=== PATIENT | male | born 1980 | race Caucasian/White ===

== ENCOUNTER 2016-03-10 02:08 | Emergency (ER) | payer OTHER ==
[2016-03-10 02:26] VITALS: BP 140/81; PULSE 79; TEMP 98.1; BMI 54.8
[2016-03-10] MEDS ORDERED: IBUPROFEN 400 MG TABLET (FP) PO ONE ×2 (02:31→03:01)
[2016-03-10] MEDS ORDERED: OXYCODONE/APAP 5/325MG COMBO TABLET PO ONE (02:31)
--- NOTE | 2016-03-10 02:54 | PDOC ---
*Physical Exam - Vital Signs Last Vital Signs Temp Pulse Resp BP Pulse Ox 98.1 F 79 20 140/81 100 03/10/16 02:13 03/10/16 02:13 03/10/16 02:13 03/10/16 02:13 03/10/16 02:13 Medical Decision Making - Medical Decision Making 03/10/16 02:54 agree with care from TONGUE CARRIER Jarek *DC/Admit/Observation/Transfer Diagnosis at time of Disposition: Dislocation, finger closed - Discharge Dispostion Disposition: HOME Condition at time of disposition: Good - Prescriptions Prescriptions: Ibuprofen [Motrin -] 600 mg PO Q6H PRN #30 tablet PRN Reason: Mild Pain Oxycodone HCl/Acetaminophen [Percocet 5-325 mg Tablet] 1 tab PO Q6H PRN #30 tablet MDD 4 tabs PRN Reason: Severe Pain - Referrals Referrals: Perez Wiseman MD [Primary Care Provider] - Negro Mehat MD [Staff Physician] - - Patient Instructions Printed Discharge Instructions: DI for Finger Dislocation Additional Instructions: FOLLOW UP WITH YOUR ORTHOPEDIST DISCUSSED REGARDING HAND SPECIALIST. TAKE MEDICATIONS PRESCRIBED. DO NOT DRIVE, DRINK ALCOHOL, OR OPERATE HEAVY MACHINERY WHILE TAKING PERCOCET. APPLY COLD COMPRESS TO AFFECTED AREA EVERY 2-4 HOURS FOR 10-15 MINS ON AND OFF. RETURN IF ANY CONCERNS FOR FURTHER EVALUATION. OR CALL DR. MEHTA (ORTHOPEDIC) REGARDING TODAY VISIT. Print Language: LITHUANIAN
[2016-03-10] MEDS ORDERED: OXYCODONE/APAP 5/325MG COMBO TABLET ONE (03:01)
--- NOTE | 2016-03-10 03:41 | PDOC ---
History of Present Illness - General Chief Complaint: Injury Stated Complaint: [employer] FINGER INJURY Time Seen by Provider: 03/10/16 02:16 History Source: Patient Exam Limitations: No Limitations - History of Present Illness Initial Comments: 03/10/16 02:32 35yo Male patient presents to ED c/o hand injury s/p fall. Patient states he slipped on ice, and while trying to break his fall he injured his right ring finger. Denies any other complaints at this time. Occurred: reports: just prior to arrival Severity: reports: mild Pain Location: reports: upper extremity Method of Injury: Yes: fall Modifying Factors: improves with: None Loss of Consciousness: no loss of consciousness Associated Symptoms (Fall): denies symptoms Past History - Travel Traveled outside of the country in the last 30 days: No Close contact w/someone who was outside of country & ill: No - Past Medical History Allergies/Adverse Reactions: Allergies Allergy/AdvReac Type Severity Reaction Status Date / Time No Known Allergies Allergy Verified 03/10/16 02:15 Home Medications: Ambulatory Orders Ibuprofen [Motrin -] 600 mg PO Q6H PRN #30 tablet 03/10/16 Oxycodone HCl/Acetaminophen [Percocet 5-325 mg Tablet] 1 tab PO Q6H PRN #30 tablet MDD 4 tabs 03/10/16 Anemia: No Asthma: No Cancer: No Cardiac Disorders: No CVA: No COPD: No CHF: No Dementia: No Diabetes: No GI Disorders: No Disorders: No HTN: No Hypercholesterolemia: No Liver Disease: No Seizures: No Thyroid Disease: No Other medical history: denies - Surgical History Abdominal Surgery: No Appendectomy: No Cardiac Surgery: No Cholecystectomy: No Lung Surgery: No Neurologic Surgery: No Orthopedic Surgery: No - Immunization History Immunization Up to Date: Yes - Psycho/Social/Smoking Cessation Hx Anxiety: No Suicidal Ideation: No Smoking Status: Yes Smoking History: Never smoked Have you smoked in the past 12 months: No Number of Cigarettes Smoked Daily: 20 Cigars Per Day: 0 Information on smoking cessation initiated: No 'Breaking Loose' booklet given: 09/30/13 Hx Alcohol Use: No Drug/Substance Use Hx: No Substance Use Type: Alcohol Trauma Specific PMHX - Complaint Specific PMHX Arthritis: No Back Injury: No Neck Injury: No Hx Sacro Iliac Joint Dysfunction: No Review of Systems - Review of Systems Able to Perform ROS?: Yes Is the patient limited Kyrgyz proficient: No Constitutional: No: Chills, Fever, Malaise, Night Sweats HEENTM: No: Throat Pain, Throat Swelling, Difficulty Swallowing, Mouth Swelling Respiratory: No: Cough, Shortness of Breath Cardiac (ROS): No: Chest Pain ABD/GI: No: Diarrhea, Nausea, Vomiting : No: Burning, Dysuria, Flank Pain Musculoskeletal: Yes: Joint Pain, Joint Swelling. No: Back Pain, Neck Pain Integumentary: No: Bruising, Rash, Sweating Neurological: No: Headache, Numbness, Seizure, Tingling, Tremors, Weakness, Dizziness All Other Systems: Reviewed and Negative *Physical Exam - Vital Signs Last Vital Signs Temp Pulse Resp BP Pulse Ox 98.1 F 79 20 140/81 100 03/10/16 02:13 03/10/16 02:13 03/10/16 02:13 03/10/16 02:13 03/10/16 02:13 - Physical Exam General Appearance: Yes: Nourished, Appropriately Dressed, Moderate Distress HEENT: positive: EOMI, ROSSI, Normal ENT Inspection, Normal Voice, Symmetrical Neck: positive: Trachea midline, Supple Respiratory/Chest: positive: Lungs Clear, Normal Breath Sounds Cardiovascular: positive: Regular Rhythm, Regular Rate Gastrointestinal/Abdominal: positive: Normal Bowel Sounds, Soft Lymphatic: negative: Adenopathy Musculoskeletal: positive: Normal Inspection, Other (Right ring finger deformity noted with moderate swelling to metacarpal hernandez aspect.). negative : CVA Tenderness Extremity: positive: Normal Capillary Refill, Normal Inspection. negative: Normal Range of Motion (Limited ROM of right ring finger.) Integumentary: positive: Normal Color, Dry, Warm Neurologic: positive: traveling phlebotomist II-XII NML intact, Fully Oriented, Alert, Normal Mood/ Affect, Normal Response, Motor Strength 5/5 Procedures - Joint Reduction Right Joint Reduction Site: right: Finger (Ring finger) Pre-Procedure NV Exam: normal Conscious Sedation: No Reduction Attempts: 1 Post-Procedure NV Exam: normal Complications: No Splint: Yes Immobilized: Yes Progress: 03/10/16 03:59 Patient tolerated well. ED Treatment Course - RADIOLOGY Radiology Studies Ordered: Category Date Time Status HAND- RIGHT [RAD] Stat Radiology 03/10/16 02:31 Ordered - Medications Given in the ED: ED Medications Discontinued Medications Generic Name Dose Route Start Last Admin Trade Name Brett PRN Reason Stop Dose Admin Ibuprofen 800 mg 03/10/16 02:31 03/10/16 03:03 Motrin - PO 03/10/16 02:32 800 mg ONCE ONE Administration Oxycodone/Acetaminophen 1 combo 03/10/16 02:31 03/10/16 03:03 Percocet 5/325 - PO 03/10/16 02:32 1 combo ONCE ONE Administration *DC/Admit/Observation/Transfer Diagnosis at time of Disposition: Dislocation, finger closed Qualifiers: Encounter type: initial encounter Qualified Code(s): S63.259A - Unspecified dislocation of unspecified finger, initial encounter - Discharge Dispostion Disposition: HOME Condition at time of disposition: Good Admit: No - Prescriptions Prescriptions: Ibuprofen [Motrin -] 600 mg PO Q6H PRN #30 tablet PRN Reason: Mild Pain Oxycodone HCl/Acetaminophen [Percocet 5-325 mg Tablet] 1 tab PO Q6H PRN #30 tablet MDD 4 tabs PRN Reason: Severe Pain - Referrals Referrals: Perez Wiseman MD [Primary Care Provider] - Negro Mehta MD [Staff Physician] - - Patient Instructions Printed Discharge Instructions: DI for Finger Dislocation Additional Instructions: FOLLOW UP WITH YOUR ORTHOPEDIST DISCUSSED REGARDING HAND SPECIALIST. TAKE MEDICATIONS PRESCRIBED. DO NOT DRIVE, DRINK ALCOHOL, OR OPERATE HEAVY MACHINERY WHILE TAKING PERCOCET. APPLY COLD COMPRESS TO AFFECTED AREA EVERY 2-4 HOURS FOR 10-15 MINS ON AND OFF. RETURN IF ANY CONCERNS FOR FURTHER EVALUATION. OR CALL DR. MEHTA (ORTHOPEDIC) REGARDING TODAY VISIT. Print Language: URDU
== END 2016-03-10 05:00 | disposition home or self-care (01) ==
LOC: JER 02:08
PROC: 0RSWXZZ Reposition Right Finger Phalangeal Joint, External Approach (ICD-10-PCS; principal; 2016-03-10)
PROC: 2W3JX1Z Immobilization of Right Finger using Splint (ICD-10-PCS; 2016-03-10)
DX: S63.262A Dislocation of metacarpophalangeal joint of right middle finger, initial encounter (principal); W00.2XXA Other fall from one level to another due to ice and snow, initial encounter; Y93.89 Activity, other specified; Y92.89 Other specified places as the place of occurrence of the external cause; Y99.0 Civilian activity done for income or pay
CPT/HCPCS: 73130-TC-RT; 99281-25

== ENCOUNTER 2017-02-09 03:54 | Emergency (ER) | payer OTHER ==
[2017-02-09 04:07] VITALS: TEMP 97.5; BMI 25.4
[2017-02-09] MEDS ORDERED: KETOROLAC TROMETHAMINE 60 MG/2 ML VIAL IM ONE (04:15)
[2017-02-09] MEDS ORDERED: KETOROLAC TROMETHAMINE 60 MG/2 ML VIAL ONE (04:23)
--- NOTE | 2017-02-09 04:33 | PDOC ---
History of Present Illness - General Chief Complaint: Pain Stated Complaint: LOW BACK PAIN Time Seen by Provider: 02/09/17 04:07 - History of Present Illness Initial Comments: 02/09/17 04:28 CHIEF COMPLAINT: back pain HISTORY OF PRESENT ILLNESS: 36 yo otherwise healthy MARGO Mckeon, presents to ED with lower back pain s/p fall. Patient states he tripped and fell in the dark and fell forward, but "felt like a tweak in my back or something." Patient reports pain with movement. No recent travel or sick contacts. PAST MEDICAL HISTORY: Denies past medical history FAMILY HISTORY: Denies SOCIAL HISTORY: Current smoker. SURGICAL HISTORY: Denies ALLERGIES: No known drug allergies REVIEW OF SYSTEMS General/Constitutional: Denies fever or chills. Denies weakness, weight change. HEENT: Denies change in vision. Denies ear pain or discharge. Denies sore throat. Cardiovascular: Denies chest pain or shortness of breath. Respiratory: Denies cough, wheezing, or hemoptysis. Gastrointestinal: Denies nausea, vomiting, diarrhea or constipation. Denies rectal bleeding. Genitourinary: Denies dysuria, frequency, or change in urination. Musculoskeletal: Lower back pain s/p fall, worse with movement but not with palpation. Skin and breasts: Denies rash or easy bruising. Neurologic: Denies headache, vertigo, loss of consciousness, or loss of sensation. PHYSICAL EXAM General Appearance: Well-appearing, appropriately dressed. No apparent distress. HEENT: EOMI, PERRLA. No conjunctival pallor. No photophobia, scleral icterus. Neck: No midline tenderness to cervical spine. Supple. Trachea midline. No tenderness. Respiratory/Chest: Lungs CTAB. Cardiovascular: RRR. S1, S2. Musculoskeletal/Extremities: No tenderness to midline thoracic or lumbar spine on palptation. Normal inspection. FROM of all extremities, normal capillary refill. Pelvis Stable. No CVA tenderness. No tenderness to extremities, pedal edema, swelling, erythema or deformity. Integumentary: Appropriate color, dry, warm. No cyanosis, erythema, jaundice or rash Neurologic: budget analyst II-XII intact. Fully oriented, alert. Appropriate mood/affect. Motor strength 5/5. No appreciable EOM palsy, facial droop or sensory deficit. 02/09/17 06:47 02/09/17 06:51 Past History - Past Medical History Allergies/Adverse Reactions: Allergies Allergy/AdvReac Type Severity Reaction Status Date / Time No Known Allergies Allergy Verified 02/09/17 04:03 Home Medications: Ambulatory Orders Cyclobenzaprine HCl [Flexeril -] 10 mg PO HS PRN #7 tablet 02/09/17 Naproxen [Naprosyn -] 375 mg PO Q12H #14 tablet 02/09/17 Anemia: No Asthma: No Cancer: No Cardiac Disorders: No CVA: No COPD: No CHF: No Dementia: No Diabetes: No GI Disorders: No Disorders: No HTN: No Hypercholesterolemia: No Liver Disease: No Seizures: No Thyroid Disease: No Other medical history: Pt denies - Surgical History Abdominal Surgery: No Appendectomy: No Cardiac Surgery: No Cholecystectomy: No Lung Surgery: No Neurologic Surgery: No Orthopedic Surgery: No - Immunization History Immunization Up to Date: Yes - Suicide/Smoking/Psychosocial Hx Smoking Status: Yes Smoking History: Never smoked Have you smoked in the past 12 months: No Number of Cigarettes Smoked Daily: 20 Cigars Per Day: 0 Information on smoking cessation initiated: No 'Breaking Loose' booklet given: 09/30/13 Hx Alcohol Use: No Drug/Substance Use Hx: No Substance Use Type: None Trauma Specific PMHX - Complaint Specific PMHX Arthritis: No Back Injury: No Neck Injury: No Hx Sacro Iliac Joint Dysfunction: No *Physical Exam - Vital Signs Last Vital Signs Temp Pulse Resp BP Pulse Ox 97.5 F L 85 20 156/90 99 02/09/17 04:04 02/09/17 04:04 02/09/17 04:04 02/09/17 04:04 02/09/17 04:04 ED Treatment Course - RADIOLOGY Radiology Studies Ordered: Category Date Time Status SPINE-LUMBAR SACRAL [RAD] Stat Radiology 02/09/17 04:14 Ordered Medical Decision Making - Medical Decision Making 02/09/17 06:49 36 yo otherwise healthy M, YPD, presents to ED with lower back pain s/p fall. -60 mg Toradol -lumbar spine CT CT results with evidence of disc herniation. NSAIDs, Flexeril, f/u with ortho. Advised patient to take medication as prescribed and follow up with orthopedics within the next week. Advised patient of signs and symptoms for return to ED. Patient verbalized understanding and agrees to plan. *DC/Admit/Observation/Transfer Diagnosis at time of Disposition: Herniated cervical disc - Discharge Dispostion Disposition: HOME Condition at time of disposition: Stable Admit: No - Prescriptions Prescriptions: Cyclobenzaprine HCl [Flexeril -] 10 mg PO HS PRN #7 tablet PRN Reason: Back Pain Naproxen [Naprosyn -] 375 mg PO Q12H #14 tablet - Referrals Referrals: Perez Wiseman MD [Primary Care Provider] - - Patient Instructions Printed Discharge Instructions: DI for Herniated Disc Additional Instructions: Please take medications as prescribed. As discussed, do NOT drive, drink alcohol, or operate machinery while taking Flexeril. Follow up with orthopedics by the end of the week for further evaluation and possible physical therapy. If you develop any loss of bowel or bladder function, loss of sensation to your legs, worsening pain, or any new or worsening symptoms, please return to the ER immediately. - Post Discharge Activity
[2017-02-09 06:16] VITALS: BP 154/86; PULSE 83
== END 2017-02-09 06:17 | disposition home or self-care (01) ==
LOC: JER 03:54
PROC: 3E0233Z Introduction of Anti-inflammatory into Muscle, Percutaneous Approach (ICD-10-PCS; principal; 2017-02-09)
DX: M51.27 Other intervertebral disc displacement, lumbosacral region (principal); W01.0XXA Fall on same level from slipping, tripping and stumbling without subsequent striking against object, initial encounter; Y93.89 Activity, other specified; Y92.89 Other specified places as the place of occurrence of the external cause; Y99.0 Civilian activity done for income or pay
CPT/HCPCS: 72131-TC; 99284-25